=== PATIENT | male | born 1960 | race Caucasian/White ===

== ENCOUNTER 2022-10-21 21:23 | Emergency (ER) | payer BC, OTHER ==
[~2022-10-21] VITALS: Ht 182.9 cm; Wt 68.9 kg
[2022-10-21 21:25] VITALS: BP_SYST 116
--- NOTE | 2022-10-21 21:25 | NUR ---
Placed in room 1 . Placed on monitoring coordinator, blood pressure machine and pulse oximeter. To gown for exam. Side rails up. Report given to ALY LUNA(REG).
--- NOTE | 2022-10-21 21:30 | NUR ---
First contact. Pt placed on monitor. Tech performing EKG. Pt biba with C-collar.
--- NOTE | 2022-10-21 21:38 | NUR ---
Pt off to CT scan at this time.
[2022-10-21 22:05] LABS: BASOPHILS % (AUTO) 0.3 % (0.0-2.0); HEMATOCRIT 41.8 % (36-54); HEMOGLOBIN 14.3 g/dL (14.0-18.0); LYMPHOCYTES # (AUTO) 0.5 K/uL (1.0-5.5); LYMPHOCYTES % (AUTO) 4.4 % (20.5-51.5); MEAN CORPUSCULAR HEMOGLOBIN 31 pg (27-31); MEAN CORPUSCULAR HGB CONC 34 % (32-36); MEAN CORPUSCULAR VOLUME 92 fL (79.0-98.0); MONOCYTES # (AUTO) 0.4 K/uL (0.0-1.0); MONOCYTES % (AUTO) 3.8 % (1.7-9.3); NEUTROPHILS # (AUTO) 10.1 K/uL (1.8-7.7); NEUTROPHILS % (AUTO) 91.5 % (40.0-70.0); PLATELET COUNT (AUTO) 178 K/uL (130-430); RED BLOOD CELL COUNT(AUTO) 4.55 MIL/uL (4.2-6.2); RED CELL DISTRIBUTION WIDTH 12.8 % (9.0-15.0)
--- NOTE | 2022-10-21 22:08 | NUR ---
ER at bedside examining patient.
[2022-10-21 22:23] LABS: ANION GAP 10 (5-15); CALCIUM 7.9 mg/dL (8.4-11.0); CHLORIDE 102 mmol/L (98-107); CREATININE 1.14 mg/dL (0.55-1.30); GLUCOSE 134 mg/dL (70-99); UREA NITROGEN, BLOOD 28 mg/dL (8-21)
[2022-10-21 22:30] LABS: ALANINE AMINOTRANSFERASE 27 U/L (12-78); ALBUMIN 3.3 g/dL (3.4-4.8); ASPARTATE AMINOTRANSFERASE 11 U/L (10-37); TOTAL BILIRUBIN 0.8 mg/dL (0.0-1.0)
[2022-10-21] MEDS ORDERED: NACL 0.9% 1,000 ML IV ONE (22:30)
[2022-10-21 22:33] LABS: GFR AFRICAN AMERICAN 84 mL/min (>90)
[2022-10-22 00:37] VITALS: BP_SYST 110
--- NOTE | 2022-10-22 00:50 | NUR ---
Patient given written and verbal discharge instructions and verbalizes understanding. ER MD discussed with patient the results and treatment provided. Patient in stable condition. ID arm band removed. IV catheter removed intact and dressing applied, no active bleeding. Patient educated on pain management and to follow up with PMD. Opportunity for questions provided and answered.
== END 2022-10-22 00:50 | disposition home or self-care (01) ==
LOC: SED 21:23
DX: K52.9 Noninfective gastroenteritis and colitis, unspecified (principal); E86.0 Dehydration; I95.1 Orthostatic hypotension; R11.0 Nausea; I10 Essential (primary) hypertension; Z79.899 Other long term (current) drug therapy
CPT/HCPCS: 99285; 96360; 70450; 71045; 80053; 85025; 84484; 36415; 93005; 76376; J7030